=== PATIENT | male | born 1940 | race Caucasian/White ===

== ENCOUNTER 2024-12-03 19:32 | Emergency (ER) | payer MEDICARE, BC, SELFPAY ==
--- NOTE | 2024-12-03 19:44 | ED.GENMED ---
ED Provider Triage
<Ponce Umanzor PA-C - Last Filed: 12/04/24 15:58>
-
Patient seen by provider in Triage?: Seen in Triage
Attestation: A medical screening examination has been initiated by a qualified medical provider. Based on the assessment performed at this time, it has been determined that an emergent medical condition may exist and the patient has been informed
that further medical evaluation and possible additional diagnostic testing may be needed.
HPI: 84-year-old male presenting to the emergency department for evaluation of hallucinations. Hallucinations have been ongoing since around [place] time and waxing and waning, reportedly worse tonight. Patient seen by primary care provider for
this who felt it was more of a visual problem. Went to supervisor accounts receivable tooth did not feel that there was any relation to the vision. Symptoms worse this afternoon prompting son to bring patient to the ER for further evaluation. No reported fevers
or illnesses. Focal weakness or numbness. Labs and head CT ordered. Patient otherwise stable.
GENERAL: Alert , in no apparent distress
EYE: No visual abnormalities.
NECK: Trachea midline
ENT: No visible abnormalities.
LUNGS: No acute respiratory distress
NEUROLOGICAL: Alert and oriented
SKIN: Skin intact. No visible changes.
MUSCULOSKELETAL: Moving extremities normally
PSYCH: Normal and appropriate interaction.
This is a medical evaluation conducted in person to initiate diagnostic evaluation and provide initial therapeutics. Please see further documentation by the treating clinician.
History of Present Illness
<Ponce Umanzor PA-C - Last Filed: 12/04/24 15:58>
General
Chief Complaint: Change in Mental Status
History of Present Illness
History of Present Illness:
.
Phy Exam
<Ponce Umanzor PA-C - Last Filed: 12/04/24 15:58>
Physical Exam
Physical Exam:
.
Course
<Ponce Umanzor PA-C - Last Filed: 12/04/24 15:58>
Orders/Labs/Results
Orders:
Orders
12/03/24 19:55
Complete Blood Count/With Diff Urgent
Comprehensive Metabolic Panel Urgent
TSH Urgent
Abnormal Lab Results
12/03/24
19:55
RBC 3.51 L 10^6/uL
(4.70-6.10)
Hgb 11.1 L g/dL
(13.0-18.0)
Hct 33.7 L %
(39.0-52.0)
MCV 96.0 H fL
(80.0-94.0)
MCH 31.6 H pg
(27.0-31.0)
MCHC 32.9 L g/dL
(33.0-37.0)
Absolute Lymphs (auto) 0.7 L 10^3/uL
(1.2-3.4)
Absolute Monos (auto) 0.8 H 10^3/uL
(0.1-0.6)
Immature Gran % 0.6 H %
(0-0.5)
Lymphocytes % 12.9 L %
(20.5-51.1)
Monocytes % 16.0 H %
(1.7-9.3)
Sodium 134 L mmol/L
(135-145)
Potassium 5.3 H mmol/L
(3.5-5.1)
BUN 38 H mg/dl
(9-20)
Creatinine 2.0 H mg/dL
(0.7-1.3)
Glucose 101 H mg/dl
(70-99)
12/03/24 19:55
12/03/24 19:55
Vital Signs
Initial and Last Documented VS:
Initial Vital Signs
Temp Pulse Resp BP Pulse Ox
98.9 F 70 18 111/63 98
12/03/24 19:46 12/03/24 19:46 12/03/24 19:46 12/03/24 19:46 12/03/24 19:46
Last Documented Vital Signs
Temp Pulse Resp BP Pulse Ox
98.9 F 70 18 63 98
12/03/24 19:46 12/03/24 19:46 12/03/24 19:46 12/03/24 19:46 12/03/24 19:46
<Lottie Gonzalez MD - Last Filed: 12/04/24 11:29>
Orders/Labs/Results
Orders:
Orders
12/03/24 19:55
Complete Blood Count/With Diff Urgent
Comprehensive Metabolic Panel Urgent
TSH Urgent
Abnormal Lab Results
12/03/24
19:55
RBC 3.51 L 10^6/uL
(4.70-6.10)
Hgb 11.1 L g/dL
(13.0-18.0)
Hct 33.7 L %
(39.0-52.0)
MCV 96.0 H fL
(80.0-94.0)
MCH 31.6 H pg
(27.0-31.0)
MCHC 32.9 L g/dL
(33.0-37.0)
Absolute Lymphs (auto) 0.7 L 10^3/uL
(1.2-3.4)
Absolute Monos (auto) 0.8 H 10^3/uL
(0.1-0.6)
Immature Gran % 0.6 H %
(0-0.5)
Lymphocytes % 12.9 L %
(20.5-51.1)
Monocytes % 16.0 H %
(1.7-9.3)
Sodium 134 L mmol/L
(135-145)
Potassium 5.3 H mmol/L
(3.5-5.1)
BUN 38 H mg/dl
(9-20)
Creatinine 2.0 H mg/dL
(0.7-1.3)
Glucose 101 H mg/dl
(70-99)
12/03/24 19:55
12/03/24 19:55
Vital Signs
Initial and Last Documented VS:
Initial Vital Signs
Temp Pulse Resp BP Pulse Ox
98.9 F 70 18 111/63 98
12/03/24 19:46 12/03/24 19:46 12/03/24 19:46 12/03/24 19:46 12/03/24 19:46
Last Documented Vital Signs
Temp Pulse Resp BP Pulse Ox
98.9 F 70 18 111/63 98
12/03/24 19:46 12/03/24 19:46 12/03/24 19:46 12/03/24 19:46 12/03/24 19:46
<Ponce Umanzor PA-C - Last Filed: 12/04/24 15:58>
*Critical Care Note
Total Time (30-74mins, 75-104mins- exclusive of procedures): Not Applicable
<Lottie Gonzalez MD - Last Filed: 12/04/24 11:29>
Update Note
Update Note:
Called and spoke with ...pt currently at [facility]. I made her aware of lab abnl, and then I called Dr Troncoso office, d/w kiesha, his private secretary. Will fax results to her [phone]. I gave her my cell if she does not receive.
ED Attending Note
<Ponce Umanzor PA-C - Last Filed: 12/04/24 15:58>
-
Portions of this chart may have been created with voice recognition software.� Occasional wrong word or��sound alike� substitutions may have occurred due to the inherent limitations of voice recognition software.
Discharge Plan
Departure
Patient Disposition: Left Without Treatment
Interventions
Interventions:
*Risk Screen - Suicide Last Done: 12/03/24 19:48
*General Assessment Last Done: 12/03/24 19:48
*Neglect/Abuse Screening Last Done: 12/03/24 19:48
*Nursing Disposition Last Done: 12/03/24 22:53
ED- Pulmonary Assessment Last Done: 12/03/24 22:53
ED- Neurological Assessment Last Done: 12/03/24 22:53
Discharge Date and Time
Discharge Date/Time: 12/03/24 22:53
Print Language: SYRIAN
[2024-12-03 19:46] VITALS: BP 111/63
[2024-12-03 20:17] LABS: % Basophils 0.4 % (0-2); % Eosinophils 0.6 % (0-6); % Immature Granulocytes 0.6 % (0-0.5); % Lymphocytes 12.9 % (20.5-51.1); % Neutrophils 69.5 % (42.2-75.2); Absolute Lymphocytes 0.7 10^3/uL (1.2-3.4); Absolute Monocytes 0.8 10^3/uL (0.1-0.6); Absolute Neutrophils 3.6 10^3/uL (1.4-6.5); Hematocrit 33.7 % (39.0-52.0); Hemoglobin 11.1 g/dL (13.0-18.0); Mean Corp Hgb Conc. 32.9 g/dL (33.0-37.0); Mean Corpuscular Hgb 31.6 pg (27.0-31.0); Mean Platelet Volume 8.8 fL (7.4-10.4); Nucleated Red Blood Cells % 0 % (-); Platelet Count 186 10^3/uL (130-400); Red Blood Cell Count 3.51 10^6/uL (4.70-6.10); Red Cell Dist. Width 13.4 % (11.5-14.5); White Blood Cell Count 5.2 10^3/uL (4.8-10.8)
[2024-12-03 20:24] LABS: ALT (SGPT) 25 U/L (0-50); AST (SGOT) 28 U/L (17-59); Alkaline Phosphatase 83 U/L (38-126); Blood Urea Nitrogen 38 mg/dl (9-20); Calcium 9.4 mg/dl (8.4-10.2); Carbon Dioxide 25 mmol/L (22-30); Chloride 103 mmol/L (98-107); Glucose 101 mg/dl (70-99); Potassium 5.3 mmol/L (3.5-5.1); Sodium 134 mmol/L (135-145); Total Bilirubin 0.5 mg/dl (0.2-1.3); Total Protein 6.6 g/dl (6.3-8.2)
[2024-12-03 20:55] LABS: TSH 1.74 uIU/ml (0.47-4.68)
--- NOTE | 2024-12-03 22:53 | EDRN ---
This RN went to take pt to CT, asked if he would like a wheelchair or wants to walk. Pt asked how much longer he has to wait. Explained to pt cannot give exact time of how much longer it will be and he said he does not want to wait any more. This
RN asked pt if he wants to get his CT done and he declined. Family member asked if pt is sure he does not want to wait and pt said he was. Pt given Declination of Services form to sign, asked to read it and explained that he can return at any time
if he changes his mind. Pt signed the form, requested a copy which was provided. Family member again asked pt if he is sure he wants to leave because the family member cannot 'come back another day and do this.' Pt again said he did not want to
wait.
== END 2024-12-03 22:53 ==
LOC: EMR 19:32
PROVIDERS: Physician Assistant Medical; FAMILY PHYSICIAN Internal Medicine
DX: R44.3 Hallucinations, unspecified (principal); Z53.21 Procedure and treatment not carried out due to patient leaving prior to being seen by health care provider
CPT/HCPCS: 99281; 80053; 84443; 85025